=== PATIENT | male | born 1985 | race Caucasian/White ===

== ENCOUNTER → 2020-12-02 | Outpatient (CLI) | payer BC ==
--- NOTE | 2020-12-02 09:32 | RAD ---
Clinical History: Epigastric pain Technique: Sonographic examination of the right upper quadrant of the abdomen was performed and mult iple static images were obtained. Comparison: none Findings: Liver: The majority of the liver is visualized and appears homogeneous. Common bile duct: Appears normal and measures 2 mm in diameter. Gallbladder: appears normal. Pancreas: is not well visualized due to overlying bowel gas but appears within normal limits. Right kidney: appears normal and measures 10 cm in length. The IVC appears normal. Impression: Negative. No evidence of gallbladder disease. Electronically signed by: Anjum Christensen III, MD (12/02/2020 9:30 AM) [id number]
== END ==
LOC: US 08:53
PROVIDERS: ATTEND Family Medicine
DX: R10.13 Epigastric pain (principal)
CPT/HCPCS: 76705